=== PATIENT | male | born 1965 | race Caucasian/White ===

== ENCOUNTER 2025-01-02 18:46 | Emergency (ER) | payer OTHER, SELFPAY ==
[2025-01-02 18:56] VITALS: BP 130/74
[2025-01-02 19:28] LABS: COVID-19 Antigen Negative (Negative)
[2025-01-02] MEDS: TYLENOL 1000 MG PO (21:30)
[2025-01-02 21:47] LABS: Hematocrit 38.5 % (39.0-52.0); Hemoglobin 13.4 g/dL (13.0-18.0); Mean Corp Hgb Conc. 34.8 g/dL (33.0-37.0); Mean Corpuscular Hgb 28.4 pg (27.0-31.0); Mean Corpuscular Volume 81.6 fL (80.0-94.0); Platelet Count 224 10^3/uL (130-400); Red Blood Cell Count 4.72 10^6/uL (4.70-6.10); Red Cell Dist. Width 13.2 % (11.5-14.5); White Blood Cell Count 13.2 10^3/uL (4.8-10.8)
[2025-01-02 21:57] LABS: Monotest Negative (Negative)
[2025-01-02 22:02] LABS: Erythrocyte Sed Rate 39 mm/hour (0-20)
--- NOTE | 2025-01-02 22:03 | ED.GENMED ---
History of Present Illness
General
Chief Complaint: Fever
Source: patient
Exam Limitations: none
Time Seen by Provider: 01/02/25 20:47
Nursing documentation reviewed up to this point in time: agreed with
History of Present Illness
History of Present Illness:
The patient is a 59-year-old man who reports feeling lethargic about 5 to 6 days ago. Patient reports that he believes he developed a fever about 4 days ago. He felt initially better but today his fever spiked to 103. His doctor evaluated him
yesterday and started him on Tamiflu, even though his flu test came back negative. Patient reports that when he closes his left eye, he has pain that develops along the left side of his scalp and towards his left ear. He denies sore throat and
headache. He denies vision changes. He denies any irritation or drainage from his eyes. He denies sick contacts. He reports he vomited once last night but has not had any vomiting since then. He denies nasal congestion, cough, rash and
diarrhea.
Past History
Past History
ED Past Medical History: None
ED Past Surgical History: Other (Cyst removed from finger)
Social History
Tobacco: Other
Alcohol: Other
Drug: None
Personal:
Living: with family
Employment: Employed
Family History
Family History: Other
Review of Systems
Review of Systems
Allergies reviewed?: Yes
All Other Systems: ROS reviewed and negative except as documented in HPI and ROS
Constitutional: Reports fever, fatigue and chills
EENT: Reports other (Pain in left ear)
Respiratory: Reports no symptoms
Cardiac: Reports no symptoms
ABD/GI: Reports no symptoms
: Reports no symptoms
Musculoskeletal: Reports no symptoms
Skin: Reports no symptoms
Neurological: Reports no symptoms
Endocrine: Reports no symptoms
Hematologic/Lymphatic: Reports no symptoms
Psychiatric: Reports no symptoms
Phy Exam
Physical Exam
Physical Exam:
Physical Exam
General: no apparent distress, patient is conversational, smiling, nontoxic but appears flushed l
Neck: supple. No cervical lymphadenopathy. No meningismus, no specific mastoid bone tenderness, no global eye tenderness bilaterally. No swelling of soft tissue neck. No significant erythema of bilateral TMs. Left
tympanic membrane appears dull. no eye pain with extraocular muscle movements. Patient has no temporal scalp tenderness, when I rub the area, he reports it makes it feel better.
Heart: Tachycardic, no murmur
Lungs: no acute respiratory distress. clear bilaterally
Abdomen: Soft, nontender
Neuro: alert and oriented. no focal neurological deficits
Skin: no rash
Psychiatric: well kept. interactive and cooperative
Extremities: no edema.
Sepsis
Sepsis Screening
Sepsis Assessment: Sepsis Ruled Out
Sepsis Screen
Sepsis Screen: Sepsis Ruled Out
Date: 01/03/25
Time: 01:23
Course
Orders/Labs/Results
Orders:
Orders
01/02/25 19:04
COVID-19 Antigen Urgent
Source: Nasal Swab
Influenza A+B Rapid Molecular Urgent
LEXX Source: Nasal Swab
Specimen Description:
01/02/25 21:26
Acetaminophen [Tylenol] 1,000 mg PO NOW STA
01/02/25 21:27
CT Orbits With Iv Contrast Urgent
Comment:
Reason For Exam: fever, L temporal area pain with closing L eye
01/02/25 21:28
Complete Blood Count/With Diff Urgent
ESR [Erythrocyte Sed Rate] Urgent
Monotest Urgent
01/02/25 21:55
CRP [C-Reactive Protein] Urgent
01/02/25 22:47
Comprehensive Metabolic Panel Urgent
01/03/25 00:57
Amoxicillin 875 mg/Clav 125 mg [Augmentin 875 mg/125 mg] 1 tablet PO NOW STA
Ibuprofen [Motrin] 600 mg PO NOW STA
Abnormal Lab Results
01/02/25 01/02/25 01/02/25
21:28 21:55 22:47
WBC 13.2 H 10^3/uL
(4.8-10.8)
Hct 38.5 L %
(39.0-52.0)
Abs Immat Gran (auto) 0.1 H 10^3/uL
(0-0.05)
Absolute Neuts (auto) 11.5 H 10^3/uL
(1.4-6.5)
Absolute Lymphs (auto) 0.8 L 10^3/uL
(1.2-3.4)
Absolute Monos (auto) 0.7 H 10^3/uL
(0.1-0.6)
Neutrophils % 87.6 H %
(42.2-75.2)
Lymphocytes % 6.4 L %
(20.5-51.1)
ESR 39 H mm/hour
(0-20)
Sodium 128 L mmol/L
(135-145)
Chloride 96 L mmol/L
(98-107)
Glucose 121 H mg/dl
(70-99)
Calcium 8.0 L mg/dl
(8.4-10.2)
C-Reactive Protein > 270.00 H mg/L
(0.0-10.00)
Total Protein 5.7 L g/dl
(6.3-8.2)
Albumin 3.0 L g/dl
(3.5-5.0)
01/02/25 21:28
01/02/25 22:47
Vital Signs
Initial and Last Documented VS:
Initial Vital Signs
Temp Pulse Resp BP Pulse Ox
103.1 F H 117 18 130/74 99
01/02/25 18:56 01/02/25 18:56 01/02/25 18:56 01/02/25 18:56 01/02/25 18:56
Last Documented Vital Signs
Temp Pulse Resp BP Pulse Ox
100.3 F 86 18 130/88 100
01/03/25 00:00 01/03/25 01:16 01/03/25 01:16 01/03/25 01:16 01/03/25 01:16
MDM/Problems Addressed
Differential Diagnosis Includes:
Influenza, COVID, pneumonia, otitis media, post orbital cellulitis
MDM/Problems Addressed:
Patient presents with acute fever and acute pain around left ear
Acute Exacerbation and/or Progression of Chronic Illness:
Patient is acutely hypertensive, likely due to fever and not feeling well
Acute Exacerbation and/or Progression of Chronic Illness: HTN
*Radiology
Radiology exam reviewed: radiology read reviewed
*Pulse Oximetry
Patient hypoxic: no
*EKG
Interpreted by ED Provider?: NA
*Pricing Coordinator Interpretation
Rate: Pricing Coordinator- N/A
*Critical Care Note
Total Time (30-74mins, 75-104mins- exclusive of procedures): Not Applicable
Data Reviewed
Source: patient and spouse
Patient Management
Social determinants of health affecting care: Living situation and Strong social support
Escalation/DeEscalation of care consider admission/obs:
Patient shows no sign of meningitis. He appears well nontoxic. His lungs are clear. I do not hear any cardiac murmurs to suggest endocarditis. His CT facial bones shows no sign of post orbital cellulitis or mastoiditis. Patient has no specific
mastoid tenderness or swelling. Patient's left tympanic membrane looks slightly dull. Given patient's 103 fever and left ear pain, decision made to treat him for a possible left otitis media. Patient also may have an acute sinusitis.
ED Attending Note
-
Portions of this chart may have been created with voice recognition software.� Occasional wrong word or��sound alike� substitutions may have occurred due to the inherent limitations of voice recognition software.
Discharge Plan
Departure
Patient Disposition: Home (Routine Discharge)
Date of Disposition: 01/03/25
Time of Disposition: 00:57
Patient with high blood pressure during this ER visit?: Yes
Condition: Good
Covid-19: Negative COVID-19
Discharge Problem:
Fever, Acute left otitis media
Instructions: Fever, Adult (DC)
Prescriptions:
New
amoxicillin-pot clavulanate 875-125 mg tablet
1 tab PO BID Qty: 13 0RF
Referrals:
Issa Mai MD [Family Provider] -
Activity Restrictions/Additional Instructions:
You may have an otitis media of the left ear, which is a middle ear infection. Take 1000 mg of Tylenol every 4-6 hours for fever. If the Tylenol is not substantially lowering the fever, you can also take Advil/Motrin 600 mg every 6-8 hours for
fever. Drink lots of fluids to keep yourself hydrated.
Interventions
Interventions:
*Risk Screen - Suicide Last Done: 01/02/25 22:00
*General Assessment Last Done: 01/02/25 18:56
*Neglect/Abuse Screening Last Done: 01/02/25 18:56
*ED- Fall Risk Assessment Last Done: 01/03/25 01:02
*ED COVID-19 Vaccine History Last Done: 01/02/25 18:56
*Nursing Disposition Last Done: 01/03/25 01:19
ED- Neurological Assessment Last Done: 01/03/25 01:02
ED-Skin Assessment Last Done: 01/03/25 01:02
Discharge Date and Time
Print Language: LUXEMBOURGISH
[2025-01-02 22:10] LABS: % Basophils 0.2 % (0-2); % Immature Granulocytes 0.5 % (0-0.5); % Lymphocytes 6.4 % (20.5-51.1); % Monocytes 5.3 % (1.7-9.3); % Neutrophils 87.6 % (42.2-75.2); Absolute Immature Granulocytes 0.1 10^3/uL (0-0.05); Absolute Lymphocytes 0.8 10^3/uL (1.2-3.4); Absolute Monocytes 0.7 10^3/uL (0.1-0.6); Absolute Neutrophils 11.5 10^3/uL (1.4-6.5); Nucleated Red Blood Cells % 0 % (-)
[2025-01-02 22:42] LABS: C-Reactive Protein > 270.00 mg/L (0.0-10.00)
[2025-01-02 23:11] LABS: ALT (SGPT) 42 U/L (0-50); AST (SGOT) 48 U/L (17-59); Alkaline Phosphatase 96 U/L (38-126); Blood Urea Nitrogen 13 mg/dl (9-20); Carbon Dioxide 27 mmol/L (22-30); Chloride 96 mmol/L (98-107); Glucose 121 mg/dl (70-99); Potassium 3.8 mmol/L (3.5-5.1); Sodium 128 mmol/L (135-145); Total Bilirubin 0.7 mg/dl (0.2-1.3); Total Protein 5.7 g/dl (6.3-8.2); eGFR > 60.00
[2025-01-03] MEDS: AUGMENTIN 875 MG/125 MG 1 TABLET PO (01:09)
[2025-01-03] MEDS: MOTRIN 600 MG PO (01:09)
[2025-01-03 01:16] VITALS: BP 130/88
== END 2025-01-03 01:20 | disposition home or self-care (01) ==
LOC: EMR 18:46
PROVIDERS: Emergency Medicine; EMERGENCY PHYSICIAN Emergency Medicine; FAMILY PHYSICIAN Family Medicine
DX: H66.92 Otitis media, unspecified, left ear (principal); I10 Essential (primary) hypertension; Z11.52 Encounter for screening for COVID-19
CPT/HCPCS: 99284; 70481; 80053; 85025; 85652; 86140; 86308; 87502; 87811; Q9967

== ENCOUNTER 2025-01-06 21:36 | Inpatient (IN) | payer OTHER, SELFPAY ==
[2025-01-06 18:50] VITALS: BP 136/79
--- NOTE | 2025-01-06 19:11 | ED.GENMED ---
History of Present Illness
General
Chief Complaint: Fever
Time Seen by Provider: 01/06/25 19:11
History of Present Illness
History of Present Illness:
TIME OF INITIAL ENCOUNTER: 7:15 PM
HPI: The patient presents with ongoing fevers for the past 8 days. He has been temperatures to around 103 �F each morning. He was seen here in the Emergency Department 4 days ago and was placed on Augmentin. He had been having intermittent waves
of pain behind his left eye. He has no neck pain. He developed a rash which is not pruritic the day after he started antibiotic. He does not think that he is immunized against measles. He has an increased cough now.
EXAM:
GENERAL: Well appearing in no distress, he is febrile,
HEENT: Moist oral mucosa, no meningeal signs, excellent chin to chest
CARDIOVASCULAR: No murmurs, tachycardic heart rate, regular rhythm, No chest wall tenderness
PULMONARY: No respiratory distress, there are rales at the left base
ABDOMEN: Soft with no peritoneal signs, no tenderness
NEUROLOGIC: Excellent strength all extremities, no coordination deficits
PSYCHIATRIC: Appropriate mental status, normal insight and judgement
EXTREMITIES: Nontender, no edema, moves all extremities equally
SKIN: There is scattered macules on the torso not suggestive of measles
NUMBER AND COMPLEXITY OF PROBLEMS ADDRESSED AT THE ENCOUNTER
� Chronic conditions affecting care: Denies any significant past medical history
� Acute Exacerbation and/or Progression of Chronic Illness: This is an acute problem
� Differential Diagnosis includes: Viral syndrome, tickborne illness, bacteremia, sepsis, measles, pneumonia
AMOUNT AND/OR COMPLEXITY OF DATA TO BE REVIEWED AND ANALYZED
� I performed an independent evaluation of and my interpretation is:
EKG:
CT:
X-rays: Chest x-ray by my read shows bilateral (right infiltrates
Laboratory Studies: White count 9.7, 1.8% immature granulocytes, mild lymphocytopenia, sed rate 63, CRP greater than 270, transaminases are now elevated in the low 100s and alk phos is 424, Clark negative, tickborne illnesses
pending, COVID-negative
Other:
� Review of other/old records: I reviewed records from 4 days ago. At that time, white count was 13.2, C-reactive protein was markedly elevated at greater than 270. CT of the orbits at that time showed some mild patchy mucosal
thickening at the left maxillary sinus and ethmoid sinuses. Flu test was negative.
� Clinical information was obtained by an independent historian: I spoke to and daughter at bedside
� Prescriptions/Medications Considered but not given:
� Further testing considered but not performed:
RISK OF COMPLICATIONS AND/OR MORBIDITY OR MORTALITY OF PATIENT MANAGEMENT
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
� Discussion with other providers: Hospitalist for admission
� Escalation of care including admission/observation vs risk of discharge considered: The patient has had 8 days of fever now with bilateral pneumonia despite being on Augmentin. Rash started after Augmentin was started. Clark
negative. Very low suspicion for measles based on the appearance however the patient is not vaccinated. Rubeola IgM pending. Patient works outside and they live in [place] [facility], tickborne illness studies pending as well. He is hypoxic with room air
sats of 90 to 91%. Placed on 2 L nasal cannula. He has marked rales on exam. Will admit to the hospital for IV antibiotic
ANY OTHER UPDATES:
Past History
Past History
ED Past Medical History: None
ED Past Surgical History: Other (Cyst removed from finger)
Social History
Tobacco: Other
Alcohol: Other
Drug: None
Personal:
Living: with family
Employment: Employed
Family History
Family History: Other
Phy Exam
Physical Exam
Physical Exam:
See HPI
Sepsis
Sepsis Screening
Sepsis Assessment: Sepsis
Sepsis Screen
Sepsis Screen: Sepsis
Date: 01/06/25
Time: 22:35
Course
Orders/Labs/Results
Orders:
Orders
01/06/25 19:25
CR Chest - 2 Views Urgent
Comment:
Reason For Exam: cough, rales L base
01/06/25 19:29
Acetaminophen [Tylenol] 1,000 mg PO NOW STA
01/06/25 19:48
Anaplasma phagocytophila IgG/M [S] Urgent
Babesia microti Abs, IgG/IgM [S] Urgent
CRP [C-Reactive Protein] Urgent
Complete Blood Count/With Diff Urgent
Comprehensive Metabolic Panel Urgent
ESR [Erythrocyte Sed Rate] Urgent
Lactic Acid Q4H
Comment: CANCEL 2nd LACTIC ACID IF 1st LACTIC ACID IS LESS THAN 2
Lyme Progressive Urgent
Monotest Urgent
Rubeola Virus IgM (Measles) [S] Urgent
Blood Culture Q30M
LEXX Source: Blood/Venous
Specimen Description:
01/06/25 19:49
Blood Culture Q30M
LEXX Source: Blood/Venous
Specimen Description:
01/06/25 20:21
0.9% Sodium Chloride 1000 ml [Nss] 1,000 ml IV BOLUS
Azithromycin 500 mg/250 ml [Zithromax Infusion] 500 mg in 250 ml IV NOW
CefTRIAXone [Rocephin] 1,000 mg IV NOW STA
01/06/25 20:24
Sterile Water [Sterile Water For Injection] 10 ml .ROUTE .STK-MED ONE
01/06/25 20:42
US Abdomen Complete/Upper Urgent
Comment:
Reason For Exam: fever abnormal LFTs
01/06/25 21:01
Admit/Transfer Patient As Directed
Co-Sign Provider:
Level of Care: Inpatient admission
Assign to:: Telemetry
Physician / Group: shin munson
Diagnosis: bilat pna, rash conc measles, transminitis
Reason for Telemetry: Arrhythmia
Date to Stop Telemetry: 01/09/25
Time to Stop Telemetry: 11:00
Reason for Hospitalization: bilat pna, rash conc measles, transminitis
Expected length of stay greater than two midnights?: Yes
ELOS- Estimated Length of Stay in days: 5
I certify the patient meets the requirements for IP care: Yes
Code Status As Directed
Resuscitation Status: Full Code
01/06/25 21:02
Add On - Microbiology Urgent
Tests Added?: respiratory viral panel Per Dr GUILLEN @[id number]
01/06/25 21:07
PRN Pain Medication Management As Directed
May give lesser potent ordered pain med per pt: Yes
preference::
Protocol:: Medication orders for pain may be administered in a
manner that supports deferring to patient preference
when the pt is:
- Requesting an ordered lesser potent pain medication.
Least to most potent pain medications are defined
as: acetaminophen < NSAID < tramadol < opioids
(morphine, oxycodone, hydromorphone).
- Requesting a lesser dose of the same medication IF
ORDERED.
- Requesting a less intrusive route of administration
if both routes are prescribed by the provider (PO <
IV).
01/06/25 21:09
CT Chest With Iv Contrast Urgent
Comment:
Reason For Exam: bilat pna
01/06/25 22:02
COVID-19 Antigen Urgent
Source: Nasal Swab
Influenza A+B Rapid Molecular Urgent
LEXX Source: Nasal Swab
Specimen Description:
01/09/25 11:00
DC Protocol for Telemetry ONCE
Abnormal Lab Results
01/06/25
19:48
RBC 4.35 L 10^6/uL
(4.70-6.10)
Hgb 12.4 L g/dL
(13.0-18.0)
Hct 35.8 L %
(39.0-52.0)
RDW 14.7 H %
(11.5-14.5)
Abs Immat Gran (auto) 0.2 H 10^3/uL
(0-0.05)
Absolute Neuts (auto) 7.5 H 10^3/uL
(1.4-6.5)
Absolute Lymphs (auto) 1.0 L 10^3/uL
(1.2-3.4)
Absolute Monos (auto) 0.7 H 10^3/uL
(0.1-0.6)
Immature Gran % 1.8 H %
(0-0.5)
Neutrophils % 77.8 H %
(42.2-75.2)
Lymphocytes % 10.4 L %
(20.5-51.1)
ESR 63 H mm/hour
(0-20)
Sodium 132 L mmol/L
(135-145)
Chloride 95 L mmol/L
(98-107)
Glucose 114 H mg/dl
(70-99)
Calcium 7.9 L mg/dl
(8.4-10.2)
AST 270 H U/L
(17-59)
ALT 148 H U/L
(0-50)
Alkaline Phosphatase 424 H U/L
(38-126)
C-Reactive Protein > 270.00 H mg/L
(0.0-10.00)
Total Protein 5.7 L g/dl
(6.3-8.2)
Albumin 2.8 L g/dl
(3.5-5.0)
01/06/25 19:48
01/06/25 19:48
Vital Signs
Initial and Last Documented VS:
Initial Vital Signs
Temp Pulse Resp BP Pulse Ox
38.7 C H 114 19 136/79 90
01/06/25 18:50 01/06/25 18:50 01/06/25 18:50 01/06/25 18:50 01/06/25 18:50
Last Documented Vital Signs
Temp Pulse Resp BP Pulse Ox
37.2 C 100 16 130/77 95
01/06/25 22:04 01/06/25 21:45 01/06/25 21:45 01/06/25 19:38 01/06/25 21:45
*Critical Care Note
Total Time (30-74mins, 75-104mins- exclusive of procedures): Not Applicable
ED Attending Note
-
Portions of this chart may have been created with voice recognition software.� Occasional wrong word or��sound alike� substitutions may have occurred due to the inherent limitations of voice recognition software.
Discharge Plan
Departure
Patient Disposition: Admit
Date of Disposition: 01/06/25
Time of Disposition: 20:28
Presentation/result/management discussed w/ accepting MD/DO: Hospitalist
Discharge Problem:
Sepsis due to pneumonia
Interventions
Interventions:
*Risk Screen - Suicide Last Done: 01/06/25 19:38
*General Assessment Last Done: 01/06/25 19:38
*Neglect/Abuse Screening Last Done: 01/06/25 19:38
*ED- Fall Risk Assessment Last Done: 01/06/25 19:38
*ED COVID-19 Vaccine History Last Done: 01/06/25 19:38
*Nursing Disposition Last Done: 01/06/25 22:34
ED- Neurological Assessment Last Done: 01/06/25 19:55
ED-Skin Assessment Last Done: 01/06/25 19:55
[2025-01-06 19:38] VITALS: BP 130/77; BMI 24.1
[2025-01-06 20:01] LABS: % Basophils 0.5 % (0-2); % Eosinophils 2.1 % (0-6); % Immature Granulocytes 1.8 % (0-0.5); % Lymphocytes 10.4 % (20.5-51.1); % Monocytes 7.4 % (1.7-9.3); % Neutrophils 77.8 % (42.2-75.2); Absolute Basophils 0.1 10^3/uL (0-0.2); Absolute Eosinophils 0.2 10^3/uL (0-0.7); Absolute Immature Granulocytes 0.2 10^3/uL (0-0.05); Absolute Monocytes 0.7 10^3/uL (0.1-0.6); Absolute Neutrophils 7.5 10^3/uL (1.4-6.5); Hematocrit 35.8 % (39.0-52.0); Hemoglobin 12.4 g/dL (13.0-18.0); Mean Corp Hgb Conc. 34.6 g/dL (33.0-37.0); Mean Corpuscular Hgb 28.5 pg (27.0-31.0); Mean Corpuscular Volume 82.3 fL (80.0-94.0); Mean Platelet Volume 9.2 fL (7.4-10.4); Nucleated Red Blood Cells % 0 % (-); Platelet Count 334 10^3/uL (130-400); Red Blood Cell Count 4.35 10^6/uL (4.70-6.10); Red Cell Dist. Width 14.7 % (11.5-14.5); White Blood Cell Count 9.7 10^3/uL (4.8-10.8)
[2025-01-06] MEDS: TYLENOL 1000 MG PO (20:06)
[2025-01-06 20:13] LABS: Erythrocyte Sed Rate 63 mm/hour (0-20); Lactic Acid 1.5 mmol/L (0.7-2.0)
[2025-01-06 20:24] LABS: Monotest Negative (Negative)
[2025-01-06 20:26] LABS: Albumin 2.8 g/dl (3.5-5.0); Alkaline Phosphatase 424 U/L (38-126); Blood Urea Nitrogen 19 mg/dl (9-20); Calcium 7.9 mg/dl (8.4-10.2); Carbon Dioxide 30 mmol/L (22-30); Chloride 95 mmol/L (98-107); Glucose 114 mg/dl (70-99); Potassium 3.9 mmol/L (3.5-5.1); Sodium 132 mmol/L (135-145); Total Bilirubin 0.6 mg/dl (0.2-1.3); Total Protein 5.7 g/dl (6.3-8.2)
[2025-01-06] MEDS: ZITHROMAX INFUSION 250 IV (20:26)
[2025-01-06] MEDS: ROCEPHIN 1000 MG IV (20:26)
[2025-01-06] MEDS: NSS 1000 IV (20:26)
[2025-01-06 20:33] LABS: C-Reactive Protein > 270.00 mg/L (0.0-10.00)
[2025-01-06 20:36] LABS: ALT (SGPT) 148 U/L (0-50); AST (SGOT) 270 U/L (17-59); Estimated Creatinine Clearance 108 ml/min; eGFR > 60.00
--- NOTE | 2025-01-06 20:47 | HPS.HSE ---
Family Physician
-
Family Physician: Issa Mai
Chief Complaint
History of Present Illness
59-year-old male complaining of ongoing fevers for the past 8 days with temperatures in the morning to 103F. He was seen in the emergency department 4 days ago placed on oral Augmentin for CT orbits showing sinus disease
Medical History
Allergies / Home Medications
Allergies reflects when Allergies were last updated in [facility].
Home Medications with original date entered in [facility]
Physical Exam
Vital Signs
Vital Signs
Temp Pulse Resp BP Pulse Ox
101.6 F H 105 25 130/77 90
01/06/25 18:50 01/06/25 20:07 01/06/25 20:07 01/06/25 19:38 01/06/25 18:50
Laboratory Results
-
01/06/25 19:48
01/06/25 19:48
Laboratory Results
Lactic Acid 1.5 mmol/L (0.7-2.0) 01/06/25 19:48
Total Bilirubin 0.6 mg/dl (0.2-1.3) 01/06/25 19:48
AST 270 U/L (17-59) H 01/06/25 19:48
ALT 148 U/L (0-50) H 01/06/25 19:48
Alkaline Phosphatase 424 U/L (38-126) H 01/06/25 19:48
Impression/Plan
-
IMPRESSION:
PLAN:
--- NOTE | 2025-01-06 22:10 | HPS.HSE ---
Family Physician
-
Family Physician: Issa Mai
Chief Complaint
-
fever, rash
History of Present Illness
59 y/o M, no significant PMH, presents to ER for evaluation of ongoing fevers. Patient reports feeling ill 9 days ago on Saturday - initially just felt sick/lethargic nonspecifically. Two days later he developed chills and fever of 100.7 along with
dry cough; by he was having further chills, higher temps and 'shakes'. on Saturday, evaluated by PCP - COVID and flu negative, but empirically given Tamiflu. on Saturday, presented to ER for 103 fever, and poor appetite. CT imaging sinus
thickening. He was prescribed Augmentin for possible sinus infection and possible inner ear infection. During this time he also suffered L eye pain and eye redness bilaterally. Over the next two days, he felt ok but today developed fever of 103,
hypoxia to 90s and tachypnea of >30 breaths as noted by his daughter, a physical therapist. He also developed a progressive rash from his face down to his trunk/abdomen and back, nonpruritic in nature. in ER bubbaight, found to have multifocal
pneumonia. Given IVF and broad spectrum antibiotics. Measle IgM sent due to patient being unvaccinated; confirmed by his sister and at bedside.
Medical History
Past Medical History
Past Medical History: Reports None
Past Surgical History: Reports None
Social History
Tobacco: Non-smoker
Alcohol: None
Personal:
Living: With Family
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
Family History
Family History: Not pertinent and Other
Allergies / Home Medications
Allergies reflects when Allergies were last updated in [facility].
Home Medications with original date entered in [facility]
Allergy/Medication List:
Allergies
Allergy/AdvReac Type Severity Reaction Status Date / Time
No Known Allergies Allergy Verified 01/06/25 18:50
Home Medications
amoxicillin 875 mg-potassium clavulanate 125 mg tablet 1 tab PO BID #13 tabs 01/03/25
cetirizine 10 mg tablet 10 mg PO DAILYPRN PRN allergies 01/06/25
ibuprofen 200 mg tablet (Advil) 200 mg PO Q6HPRN PRN mild pain/fever 01/06/25
Review of Systems
-
A 12 point ROS was completed and negative except as noted: Yes
Physical Exam
Vital Signs
Vital Signs
Temp Pulse Resp BP Pulse Ox
98.9 F 100 16 130/77 95
01/06/25 22:04 01/06/25 21:45 01/06/25 21:45 01/06/25 19:38 01/06/25 21:45
Physical Exam
General: No Apparent Distress
HEENT: NormoCephalic and Anicteric
Respiratory: Rales (prominent L basilar rales, crackles)
Cardiac: S1/S2 and Regular Rhythm
GI: Soft and Non Tender
Skin: Other (raised lesions across hairline, down to trunk and back, distally spreading. nonpruritic. )
Neuro: AO x 3
Hematologic/Lymphatic: No Lymphadenopathy
Psych: Calm
Laboratory Results
-
01/06/25 19:48
01/06/25 19:48
Laboratory Results
Lactic Acid Cancelled 01/06/25 23:30
Total Bilirubin 0.6 mg/dl (0.2-1.3) 01/06/25 19:48
AST 270 U/L (17-59) H 01/06/25 19:48
ALT 148 U/L (0-50) H 01/06/25 19:48
Alkaline Phosphatase 424 U/L (38-126) H 01/06/25 19:48
Data Reviewed
-
Lab Data: Labs Reviewed by me
Impression/Plan
-
Assessment:
Acute distally spreading, macular rash
- appears a viral exanthem
- nonpruritic
- monitor spread/progression
- with other generalized symptoms such as malaise, fevers - will check viral respiratory panel, COVID and Flu
- confirmed never vaccinate against Measles, Mumps, Rubella - will check IgMs
- precautions ordered.
- tick born illness panel sent
- supportive care and observation for now
- ID consult for additional recs
Acute hypoxic respiratory insufficiency on 2L NC
multifocal pneumonia
- unclear etiology
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
- ? hypersensitivity reaction. check IgE
- post-viral pneumonia also possible
- check Speech eval to assess for aspiration
- empiric Vanco/Cefepime
- CT Chest
- Pulmonary consult for additional recs
Acute transaminitis
- US: The gallbladder appears contracted without sonographic evidence of cholelithiasis. There is no biliary duct dilation. Increased echogenicity of the liver suggestive of mild steatosis.
- trend LFTs
- check hepatitis panel including EBV
- no pain; ok for diet
DVT ppx: Lovenox
Code: Full
[2025-01-06 22:28] LABS: COVID-19 Antigen Negative (Negative)
[2025-01-06 22:45] VITALS: BMI 24.1
[2025-01-06 22:46] VITALS: BP 135/75
--- NOTE | 2025-01-06 23:00 | PHA.VAN.IN ---
Assessment
- Assessment
Renal Function: Appears similar to baseline
Concomitant Antimicrobials: CEFEPIME
- Previous Dosing Experience
Previous Regimen: NONE
AUC Dosing Plan
- Dosing Variables
Dosing Weight (kg): 80.4
Dosing CrCl (ml/min): 100
Vd coefficient (L/kg): 0.7
- Empiric Dosing
Initial / Loading Dose: 2GM
Maintenance Regimen: 1250MG IV Q12H
Estimated AUC (mcg*h/mL): 542
Estimated Peak (mcg*h/mL): 34.2
Estimated Trough (mcg/ml): 13.7
Estimated Half Life (H): 7.9
Pharmacokinetics Vancomycin I
- -
Patient Age: 59
Patient Sex: Male
Vancomycin Day #: 1
Indication: Pulmonary/Respiratory
Requesting Provider: LARRY
Height / Weight:
Height 6 ft
Actual Weight 80.377 kg
Pertinent Past Medical History: RECENT ER VISIT FOR SIMILAR SYMPTOMS
- Vital Signs / Lab Results
Temp Pulse Resp BP Pulse Ox
98.6 F 93 20 135/75 96
01/06/25 22:46 01/06/25 22:46 01/06/25 22:46 01/06/25 22:46 01/06/25 22:46
Lab Results - Hematology
01/06/25
19:48
WBC 9.7
Lab Results - Chemistry
01/06/25
19:48
BUN 19
Creatinine 0.8
Estimated Creat Clear 108
Albumin 2.8 L
01/06/25 01/06/25
19:48 23:30
Lactic Acid 1.5 Cancelled
Microbiology Results
01/06/25 22:02 Influenza Types A & B (SD) - Final
Nasal Swab Negative for Influenza A & B, NAAT
Negative results must be combined with clinical observations
and patient history.
Nucleic Acid Amplification test (NAAT)performed on the
[employer] platform.
[2025-01-06] MEDS: VANCOCIN 540 MG IV (23:49)
--- NOTE | 2025-01-07 01:49 | PTCARENOTE ---
01/06: PT admitted via stretcher. pt ambulatory on 2l nc masked. Pt AAOx3. Telemetry pack applied, vss. pt oriented to room, callbell within reach. pt's family educated on hospital policy for rule out measles.
[2025-01-07] MEDS: STERILE WATER FOR INJECTION 10 ML IV ×2 (02:34→10:26)
[2025-01-07] MEDS: MAXIPIME 2000 MG IV ×2 (02:34→10:26)
[2025-01-07 03:10] VITALS: BP 115/70
[2025-01-07 06:00] VITALS: BMI 24.2
[2025-01-07] MEDS: VANCOCIN 275 MG IV (06:23)
[2025-01-07 06:29] LABS: Hematocrit 36.3 % (39.0-52.0); Hemoglobin 12.2 g/dL (13.0-18.0); Mean Corp Hgb Conc. 33.6 g/dL (33.0-37.0); Mean Corpuscular Hgb 27.6 pg (27.0-31.0); Mean Corpuscular Volume 82.1 fL (80.0-94.0); Mean Platelet Volume 9.4 fL (7.4-10.4); Platelet Count 327 10^3/uL (130-400); Red Blood Cell Count 4.42 10^6/uL (4.70-6.10); Red Cell Dist. Width 14.6 % (11.5-14.5); White Blood Cell Count 9.4 10^3/uL (4.8-10.8)
[2025-01-07 06:54] LABS: ALT (SGPT) 145 U/L (0-50); AST (SGOT) 198 U/L (17-59); Albumin 2.4 g/dl (3.5-5.0); Alkaline Phosphatase 379 U/L (38-126); Blood Urea Nitrogen 15 mg/dl (9-20); Calcium 7.7 mg/dl (8.4-10.2); Carbon Dioxide 27 mmol/L (22-30); Chloride 103 mmol/L (98-107); Estimated Creatinine Clearance 123 ml/min; Glucose 105 mg/dl (70-99); Potassium 4.2 mmol/L (3.5-5.1); Sodium 137 mmol/L (135-145); Total Bilirubin 0.5 mg/dl (0.2-1.3); Total Protein 5.1 g/dl (6.3-8.2); eGFR > 60.00
[2025-01-07 07:15] LABS: C-Reactive Protein > 270.00 mg/L (0.0-10.00)
--- NOTE | 2025-01-07 07:24 | CON.PUL ---
Consultation
Consultation Request
Date/Time Consultation Requested: 01/07/2025
Date/Time Consultation Performed: 01/07/2025
Requesting Provider: Pankaj Flores
Performing Provider: Malena Rincon
Reason for Consultation: Pneumonia
Medical History
-
Chief Complaint: Cough
History of Present Illness:
59 y/o M, no significant PMH, presented to hospital with fever, rash and cough. Patient's illness started about 10 days ago when he had generalized bodyaches and fever. He was empirically treated with Tamiflu as outpatient. Subsequently he
presented to [place] emergency room because of left-sided retro-orbital pain. He had a CT scan in the hospital which was essentially negative. He was suspected to have otitis media and was started on Augmentin. 3 days into Augmentin therapy,
patient broke out into a urticarial rash in addition to having cough and some fever. He was brought back to the emergency room where he was noted to have large left-sided pneumonia. There was concern for measles/viral exanthem and he was admitted
to the hospital. Pulmonary consultation was requested for further input.
Past Medical History: Reports None
Past Surgical History: Reports None
Social History
Tobacco: Non-smoker
Alcohol: None
Personal:
Living: With Family
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 No reported exposure to Asbestos. Reports exposure to Silica/cement etc. Wears mask etc.
Family History
Family History: Not pertinent and Other
Allergies / Home Medications
Allergies / Home Medications
Allergies
Allergy/AdvReac Type Severity Reaction Status Date / Time
No Known Allergies Allergy Verified 01/06/25 18:50
Home Medications
�Medication �Instructions �Recorded �Confirmed �Last Taken �Type
amoxicillin 875 mg-potassium 1 tab PO BID #13 tabs 01/03/25 01/06/25 01/06/25 Rx
clavulanate 125 mg tablet
cetirizine 10 mg tablet 10 mg PO DAILYPRN PRN allergies 0401/06/25 01/06/25 History
ibuprofen 200 mg tablet (Advil) 200 mg PO Q6HPRN PRN mild 01/06/25 01/06/25 01/06/25 History
pain/fever
Review of Systems
-
Hematologic/Lymphatic: Other (All 14 systems reviewed and negative except as stated above in the history of present illness.)
Vitals / Labs / Diagnostic Testing
Vital Signs
Temp Pulse Resp BP Pulse Ox
98.6 F 86 20 115/70 97
01/07/25 03:10 01/07/25 03:10 01/07/25 03:10 01/07/25 03:10 01/07/25 05:48
Lab Data
01/07/25 05:54
01/07/25 05:54
Microbiology
01/06/25 22:02 Nasal Swab Influenza Types A & B (SD) - Final
Negative for Influenza A & B, NAAT
Negative results must be combined with clinical observations
and patient history.
Nucleic Acid Amplification test (NAAT)performed on the
[employer] platform.
Diagnostic Testing:
Physical Exam
-
HEENT: Normocephalic
Cardiovascular: S1/S2
Respiratory: Clear and Rhonchi (in b/l lower lobes, more on left side )
GI: Soft and Non Distended
Neurology: Awake and Alert
Skin: Warm and Other (Raised papular lesions, appear to be urticarial )
General: Comfortable
Assessment
-
#1. Multifocal pneumonia, primarily LLL, also RLL infiltrates.
-Continue Vancomycin and Cefepime as ordered
-Add Azithromycin 500 mg daily PO for Atypical coverage (particularly Mycoplasma with abnormal LFTs)
-Check Sputum cultures, MRSA screen, Legionella and Pneumococcal Ag. f/u blood cultures.
-Influenza and COVID-19 negative
-If any clinical worsening, will consider Bronchoscopy and BAL with biopsy
-Considering dense infiltrates, patient will need f/u imaging in 6-8 weeks time
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 Wears mask at work, imaging features not typical of occupation exposure
#2. Rash. Raised papules, appear to be Urticaria. ?Drug reaction to Augmentin that patient had been on.
-Off Augmentin now
-Benadryl PO times 1
-Viral exanthem, Mycoplasma also in differential diagnosis. Await ID input
#3. Mildly elevated LFTs
-Could be related to Augmentin as well
-Monitor for now
Pulmonary team will follow
Total time spent on this consultation/encounter _65___ minutes which includes review of history, physical exam, medications, laboratory data, personal review of imaging, extensive review of outpatient records, discussion with care team and
respiratory therapy.
Data:
01/2025: 1. There is multifocal pneumonia most pronounced in the left lower lobe which is near completely opacified. Recommend follow-up to exclude underlying mass.
2. There is bilateral hilar lymphadenopathy measuring up to 1.1 cm, likely reactive.
3. Calcification within the lateral right lower lobe as well as calcified right hilar lymph nodes which are likely sequelae of prior granulomatous infection.
4. Bilateral apical calcified pleural plaques which are likely sequelae of prior asbestos exposure.
[2025-01-07 07:45] VITALS: BP 129/77
--- NOTE | 2025-01-07 08:14 | PHA.VAN.FU ---
Vancomycin Assessment / Plan
- Assessment
Renal Function: Stable (SCr 0.7)
WBC's are: WNL (9.4)
In the past 24 hrs, patient has been: Febrile (101.4)
Concomitant Antimicrobials: Cefepime
- Dosing Plan
Continue: Vanco 1250mg Q12H
- Monitoring Plan
No level(s) ordered at this time: Consider in the next few days
- Follow Up
Pharmacy will continue to follow.
Vancomycin Follow UP
- -
Patient Age: 59
Patient Sex: Male
Vancomycin Day #: 2
Indication: Pulmonary/Respiratory
Requesting Provider: LARRY
Height / Weight:
Height 6 ft
Actual Weight 80.785 kg
Pertinent Past Medical History: RECENT ER VISIT FOR SIMILAR SYMPTOMS
- Vital Signs / Lab Results
Temp Pulse Resp BP Pulse Ox
98.6 F 86 20 115/70 97
01/07/25 03:10 01/07/25 03:10 01/07/25 03:10 01/07/25 03:10 01/07/25 05:48
Lab Results - Hematology
01/06/25 01/07/25
19:48 05:54
WBC 9.7 9.4
Lab Results - Chemistry
01/06/25 01/07/25
19:48 05:54
BUN 19 15
Creatinine 0.8 0.7
Estimated Creat Clear 108 123
Albumin 2.8 L 2.4 L
01/06/25 01/06/25
19:48 23:30
Lactic Acid 1.5 Cancelled
Microbiology Results
01/06/25 22:02 Influenza Types A & B (SD) - Final
Nasal Swab Negative for Influenza A & B, NAAT
Negative results must be combined with clinical observations
and patient history.
Nucleic Acid Amplification test (NAAT)performed on the
[employer] platform.
[2025-01-07 08:16] LABS: Erythrocyte Sed Rate 71 mm/hour (0-20)
[2025-01-07 08:45] LABS: Absolute Neutrophils -Man Diff 7.7 10^3/uL (1.4-6.5); Atypical Lymphocytes 3 %; Band Neutrophils 10 % (0-3); Eosinophils 1 % (0-6); Lymphocytes 7 % (20-51); Metamyelocytes 3 % (-); Monocytes 4 % (2-9); Normal RBC Morphology Yes; Platelets Checked Yes; Segmented Neutrophils 72 % (42-75)
[2025-01-07 08:46] LABS: Total Cells Counted 100
--- NOTE | 2025-01-07 09:49 | CON.ID ---
Addendum entered and electronically signed by Memo Cespedes DO 01/07/25 11:34:
I personally performed a history and physical exam of the patient and discussed management with the resident. I reviewed the resident's note and agree with the documented findings and plan of care HPI/CC.
Rash not consistent with measles. Discontinue further isolation. Discussed with Infection Prevention.
Continue with antibiotic therapy for pneumonia. Change to oral Levaquin.
Follow rash for improvement.
Check Legionella and pneumococcal urinary antigens. Mycoplasma antibody sent.
Follow LFTs
Original Note:
Consultation
-
Date/Time Consultation Requested: 01/07/25
Date/Time Consultation Performed: 01/07/25
Requesting Provider: Dr. Memo Cespeeds
Performing Provider: Dr Jv Kay
Reason for Consultation: Fever with rash
Chief Complaint / Past History
History of Present Illness
59-year-old male with no significant past history is being evaluated for fever with rash. History is being obtained from the chart and patient interview. 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
Patient reports his symptoms started on Saturday with weakness and feeling lethargic. He developed fever and chills two days later on . He took some Tylenol which helped. His symptoms started to worsen and he decided to go to his PCP
at [facility]. He was prescribed Tamiflu for flu, though the test was negative. He reports that his symptoms worsened the next day with continuous fevers and chills. He denies cough, runny nose, SOB. He then decided to go to ER on
01/02/25, where CT of head/orbit showed mucosal thickening of ethmoid sinuses. He was prescribed Augmentin for acute sinusitis.
He reports that with Augmentin his fever improved and he felt energetic. He also took Advil. He reports of rash on the third day of taking the antibiotic, rash started on his trunk and spread to his torso. The next day he was hypoxic, fever of 103
and tachypnea which was noted by his daughter and was brought to the ED.
Work up in ED showed bilateral lower lobe infiltrate on the chest x ray. Patient was started on Azithromycin, Cefepime and Vancomycin. Labs showed normal WBC with a left shift, transaminitis, elevated alk phosphatase, elevated ESR and CRP.
He denies taking any childhood vaccines as his mother did not believe in vaccinations.
Past History
Past Medical History: None
Past Surgical History: None
Allergy History:
No Known Allergies Allergy (Verified 01/06/25 18:50)
Medications Reviewed: Yes
Current Antibiotics:
Cefepime
Vancomycin
Azithromycin
Social History
Tobacco: Non-Smoker
Alcohol: None
Personal:
Living: With Family
Employment: Employed
Family History
Family History: Not Pertinent
Review of Systems
Review of Systems
General: Fever and Chills
Skin / Hair / Nails: Rash
Vital Signs
Temp Pulse Resp BP Pulse Ox
99.3 F 102 16 129/77 91
01/07/25 07:45 01/07/25 07:45 01/07/25 07:45 01/07/25 07:45 01/07/25 07:45
Physical Exam
Physical Exam
Constitutional: No Acute Distress and Non-toxic
Head: Normocephalic
Eyes: Pupils Equal and Pupils Round
Cardiovascular: Regular Rate and S1/S2; Negative Murmur or Rub
Pulmonary: Other (Decreased breath sounds in left lower lobe)
Gastrointestinal: Soft, Tender and Non Distended
Skin: Rash (red, flat with raised borders nonpuritic, seen on back, torso, extremities. )
Neurological: AO x 3
Psychological: Calm
Lab / Diagnostic Study Results
01/07/25 05:54
01/07/25 05:54
Abs Immat Gran (auto) 0.2 10^3/uL (0-0.05) H 01/06/25 19:48
Absolute Neuts (auto) 7.5 10^3/uL (1.4-6.5) H 01/06/25 19:48
Absolute Lymphs (auto) 1.0 10^3/uL (1.2-3.4) L 01/06/25 19:48
Absolute Monos (auto) 0.7 10^3/uL (0.1-0.6) H 01/06/25 19:48
Absolute Basos (auto) 0.1 10^3/uL (0-0.2) 01/06/25 19:48
Total Counted 100 01/07/25 05:54
Immature Gran % 1.8 % (0-0.5) H 01/06/25 19:48
Neutrophils % 77.8 % (42.2-75.2) H 01/06/25 19:48
Lymphocytes % 10.4 % (20.5-51.1) L 01/06/25 19:48
Monocytes % 7.4 % (1.7-9.3) 01/06/25 19:48
Eosinophils % 2.1 % (0-6) 01/06/25 19:48
Basophils % 0.5 % (0-2) 01/06/25 19:48
Abs Neuts (Manual) 7.7 10^3/uL (1.4-6.5) H 01/07/25 05:54
Segmented Neutrophils 72 % (42-75) 01/07/25 05:54
Band Neutrophils 10 % (0-3) H 01/07/25 05:54
Lymphocytes (Manual) 7 % (20-51) L 01/07/25 05:54
Eosinophils (Manual) 1 % (0-6) 01/07/25 05:54
ESR 71 mm/hour (0-20) H 01/07/25 05:54
Lactic Acid Cancelled 01/06/25 23:30
C-Reactive Protein > 270.00 mg/L (0.0-10.00) H 01/07/25 05:54
Microbiology Results
Micro:
01/07/25 00:06 Nasal Screen MRSA (PCR) - Pending
Nose
01/06/25 22:02 Influenza Types A & B (SD) - Final
Nasal Swab Negative for Influenza A & B, NAAT
Negative results must be combined with clinical observations
and patient history.
Nucleic Acid Amplification test (NAAT)performed on the
[email or web address] platform.
01/06/25 19:48 Blood Culture - Pending
Blood/Venous
01/06/25 19:49 Blood Culture - Pending
Blood/Venous
Imaging
01/06/25 chest [id number] lower lobe infiltrates, worse on the left, consistent with multifocal pneumonia.
01/06/25-chest CT-multifocal pneumonia more pronounced in left lower lobe with bilateral hilar lymphadenopathy. Calcification within the lateral right lower lobe as well as calcified right hilar lymph nodes
01/06/2025-abdominal ultrasound- The gallbladder appears contracted without sonographic evidence of cholelithiasis.
Assessment / Plan
Fever
Acute hypoxic respiratory insufficiency-on 2 L of oxygen
Distally spreading rash- probably drug reaction from Augmentin
Acute Transaminitis
Elevated ESR and CRP
PLAN
Currently afebrile, normal white count with a left shift
Chest x-ray showing bilateral lower lobe infiltrates
Stop cefepime, vancomycin, azithromycin
Start Levaquin 750 mg q24
No isolation precautions needed at this time.
Monitor temp curve and WBC
Monitor LFTs
--- NOTE | 2025-01-07 10:13 | CM ---
Patient with Dx Acute rash/fever, pneumonia, transaminitis. Airborne Precautions. O2 3L. Receiving IV/PO Abx. Rubeola IgM (measles) pending/Labs pending.
Spoke with patient who resides with his in a 2 story house.
The patient was independent in ADLs and ambulation.
The patient was active and working.
His only DME is crutches that he is not using.
No prior VN or SNF.
PCP - Issa Mai
Pharmacy - [facility]
No CM d/c needs identified.
Plan home.
[2025-01-07] MEDS: ZITHROMAX 500 MG PO (10:25)
[2025-01-07] MEDS: BENADRYL 25 MG PO (10:26)
--- NOTE | 2025-01-07 11:15 | PTCARENOTE ---
per MD and ID, pt to be taken off airborne precautions. rash likely drug reaction from Augmentin /Acute Transaminitis
[2025-01-07] MEDS: LEVAQUIN 750 MG PO (12:19)
--- NOTE | 2025-01-07 14:50 | W.PN.HOSP.TC ---
Today's Communication/Plan
-
Transition to oral levofloxacin
Follow LFTs
Monitor body rash
Wean off oxygen
Assessment / Plan
Assessment / Plan
Impression:
Multifocal community-acquired pneumonia
Diffuse body rash.
Elevated transaminases
Plan:
Multifocal and likely community-acquired pneumonia.
Given presenting rash, there is a reasonable concern for atypical pneumonia including mycoplasma.
Follow viral serology
Mycoplasma antibody sent
Follow blood cultures
Streptococcal and Legionella antigen pending
Antibiotics consolidated to oral levofloxacin.
No evidence of respiratory distress or hypoxia upon presentation. Had been placed on 2 L of oxygen with saturations in the mid 90s. Will wean off prior to discharge
Body rash not consistent with measles.
Suspect drug-induced reaction (Augmentin)
Less likely DRESS with absence of a significantly
Follow mycoplasma antibody.
Follow viral serology.
Mild elevation of transaminases with no symptoms.
Suspect DILI secondary to Augmentin
Abdominal sonogram with no hepatobiliary pathology
Follow LFTs trend
Anticipated Discharge: 24 - 48 hours
Subjective/Interval History
-
Date of Service: January 07, 2025
Objective Data
-
Labs:
Laboratory Results
01/07/25
05:54
WBC 9.4
Hgb 12.2 L
Hct 36.3 L
Plt Count 327
Sodium 137
Potassium 4.2
Chloride 103
Carbon Dioxide 27
BUN 15
Creatinine 0.7
Glucose 105 H
Calcium 7.7 L
Total Bilirubin 0.5
AST 198 H
ALT 145 H
Alkaline Phosphatase 379 H
Vital Signs:
Vital Signs
Temp Pulse Resp BP Pulse Ox
99.3 F 102 16 129/77 93
01/07/25 07:45 01/07/25 07:45 01/07/25 07:45 01/07/25 07:45 01/07/25 11:14
I&O
01/06/25 01/07/25 01/08/25
06:59 06:59 06:59
Intake Total 1585 / 1585
Balance 1585 / 1585
Physical Exam
-
General: Well Developed and No Apparent Distress
HEENT: Normocephalic, Atraumatic and Moist Mucous Membranes
Respiratory: Clear to Auscultation
Cardiac: Regular Rhythm and S1/S2; Negative Murmur, Rub or Gallop
GI: Soft, Nontender, Nondistended and Normal Bowel Sounds; Negative Organomegaly
Rectal: Deferred by Provider
Musculoskeletal: No Clubbing, No Cyanosis and No Edema
Skin: Negative Rash
Neuro: Nonfocal/Grossly Intact
[2025-01-07 15:35] VITALS: BP 126/75
[2025-01-07 19:00] VITALS: BP 125/72
[2025-01-07 19:32] LABS: Hepatitis B Surface Antigen Negative (Negative)
[2025-01-07 19:50] LABS: Hepatitis A Antibody, Total Negative (Negative); Hepatitis B Surface Antibody Negative; Hepatitis C Antibody Negative (Negative)
[2025-01-07 19:58] LABS: Rubella Negative
[2025-01-07 23:18] VITALS: BP 126/68
[2025-01-08 03:00] VITALS: BP 114/68
[2025-01-08 05:46] VITALS: BMI 23.6
[2025-01-08 07:20] VITALS: BP 137/78
[2025-01-08 07:34] LABS: % Basophils 0.5 % (0-2); % Eosinophils 5.2 % (0-6); % Immature Granulocytes 4.8 % (0-0.5); % Lymphocytes 16.3 % (20.5-51.1); % Monocytes 7.5 % (1.7-9.3); % Neutrophils 65.7 % (42.2-75.2); Absolute Basophils 0.1 10^3/uL (0-0.2); Absolute Eosinophils 0.5 10^3/uL (0-0.7); Absolute Immature Granulocytes 0.5 10^3/uL (0-0.05); Absolute Lymphocytes 1.6 10^3/uL (1.2-3.4); Absolute Monocytes 0.7 10^3/uL (0.1-0.6); Absolute Neutrophils 6.3 10^3/uL (1.4-6.5); Hematocrit 35.1 % (39.0-52.0); Mean Corp Hgb Conc. 34.2 g/dL (33.0-37.0); Mean Platelet Volume 9.2 fL (7.4-10.4); Nucleated Red Blood Cells % 0 % (-); Platelet Count 407 10^3/uL (130-400); Red Blood Cell Count 4.28 10^6/uL (4.70-6.10); Red Cell Dist. Width 14.9 % (11.5-14.5); White Blood Cell Count 9.6 10^3/uL (4.8-10.8)
[2025-01-08 07:53] LABS: ALT (SGPT) 160 U/L (0-50); AST (SGOT) 154 U/L (17-59); Albumin 2.4 g/dl (3.5-5.0); Alkaline Phosphatase 307 U/L (38-126); Blood Urea Nitrogen 11 mg/dl (9-20); Calcium 7.9 mg/dl (8.4-10.2); Carbon Dioxide 28 mmol/L (22-30); Chloride 102 mmol/L (98-107); Estimated Creatinine Clearance 123 ml/min; Glucose 95 mg/dl (70-99); Potassium 4.7 mmol/L (3.5-5.1); Sodium 136 mmol/L (135-145); Total Bilirubin 0.6 mg/dl (0.2-1.3); Total Protein 5.1 g/dl (6.3-8.2); eGFR > 60.00
[2025-01-08] MEDS: LEVAQUIN 750 MG PO (08:15)
--- NOTE | 2025-01-08 10:17 | W.PN.ID1 ---
Addendum entered and electronically signed by Memo Cespedes DO 01/08/25 12:35:
I saw and evaluated the patient. I reviewed the resident�s note and agree with findings and plan as documented in the resident�s note.
Patient feeling improved. Rash improved.
Continue with Levaquin to complete a 5-day course for community-acquired pneumonia.
Discussed utility of initiating adult vaccine series with patient. Advised follow-up with PCP regarding further vaccinations.
Recommend follow-up CXR in 4 to 6 weeks to assess resolution of infiltrates.
Original Note:
Date of Service
Date of Service: January 08, 2025
Today's Communication
continue antibiotics
Assessment / Plan
Fever
Acute hypoxic respiratory insufficiency-on 2 L of oxygen
Distally spreading rash- not consistent with measles.
Acute Transaminitis
Elevated ESR and CRP
PLAN
Currently afebrile, normal WBC.
Continue treatment for CAP
Continue oral Levaquin 750 mg q24- day 2
Negative strep pneumo and legionella urinary antigen
Monitor temp curve and WBC
Monitor LFTs
Chief Complaint
-: Pneumonia
Subjective / Review of Systems
Review of Systems: No Fever, No Chills, No Headache and Skin Rash
Vital Signs / Physical Exam
Vital Signs
Vital Signs
Temp Pulse Resp BP Pulse Ox
98.2 F 91 20 137/78 94
01/08/25 07:20 01/08/25 07:20 01/08/25 07:20 01/08/25 07:20 01/08/25 07:20
Physical Exam
Constitutional: No Acute Distress and Non-toxic
Head: Normocephalic
Eyes: Pupils Equal and Pupils Round
Cardiovascular: Regular Rate and S1/S2
Pulmonary: Other (decreased breath sounds at the bases bilaterally)
Gastrointestinal: Non Distended
Skin: Rash (improving )
Neurological: AO x 3
Psychological: Calm
Objective Data
Lab Data
Lab Results
01/08/25 06:44
01/08/25 06:44
ESR 71 mm/hour (0-20) H 01/07/25 05:54
Estimated Creat Clear 123 ml/min 01/08/25 06:44
Lactic Acid Cancelled 01/06/25 23:30
Total Bilirubin 0.6 mg/dl (0.2-1.3) 01/08/25 06:44
AST 154 U/L (17-59) H 01/08/25 06:44
ALT 160 U/L (0-50) H 01/08/25 06:44
Alkaline Phosphatase 307 U/L (38-126) H 01/08/25 06:44
C-Reactive Protein > 270.00 mg/L (0.0-10.00) H 01/07/25 05:54
Most recent labs reviewed.
Micro Results:
01/06/25 19:49 Blood Culture - Preliminary
Blood/Venous No Growth in 24 hours- Final report to follow
01/06/25 19:48 Blood Culture - Preliminary
Blood/Venous No Growth in 24 hours- Final report to follow
01/07/25 14:19 Legionella Urinary Antigen - Final
Urine Negative for Legionella pneumophila Serogroup 1 antigen.
A negative result does not rule out the possiblity of
Legionella infection due to other serogroups or species of
Legionella. Clinical correlation is recommended.
Streptococcus pneumoniae Antigen (M - Final
Negative for Streptococcus pneumoniae antigen.
A negative result does not exclude infection with
Streptococcus pneumoniae. Clinical correlation is
recommended.
01/07/25 00:06 Nasal Screen MRSA (PCR) - Final
Nose MRSA not detected - performed by PCR methodology.
01/06/25 22:02 Influenza Types A & B (SD) - Final
Nasal Swab Negative for Influenza A & B, NAAT
Negative results must be combined with clinical observations
and patient history.
Nucleic Acid Amplification test (NAAT)performed on the
[employer] platform.
Imaging
01/06/25 chest [id number] lower lobe infiltrates, worse on the left, consistent with multifocal pneumonia.
01/06/25-chest CT-multifocal pneumonia more pronounced in left lower lobe with bilateral hilar lymphadenopathy. Calcification within the lateral right lower lobe as well as calcified right hilar lymph nodes
01/06/2025-abdominal ultrasound- The gallbladder appears contracted without sonographic evidence of cholelithiasis.
[2025-01-08 11:25] VITALS: BP 119/72
--- NOTE | 2025-01-08 12:35 | PTCARENOTE ---
pt walked unit for home o2 assessment with this RN. pt remained above 92% and had no sob or dyspnea with exertion.
--- NOTE | 2025-01-08 12:43 | W.DS.TRANS ---
DC Summary - [employer]
-
Discharge Instructions:
Discharge Diagnosis/Procedures Multifocal pneumonia
Diet Regular
Additional Diets CXR to follow up with bilateral pneumonia in 3-4
weeks
Instructions:
Stand-Alone Forms:
Changes to Home Medications: Yes
Discharge Medications:
DC Medications w/original date entered in [employer]
cetirizine 10 mg tablet 10 mg PO DAILYPRN PRN allergies 01/06/25
ibuprofen 200 mg tablet (Advil) 200 mg PO Q6HPRN PRN mild pain/fever 01/06/25
guaifenesin 600 mg tablet, extended release 12 hr (Mucinex) 600 mg PO Q12H #60 tabs 01/08/25
levofloxacin 750 mg tablet 750 mg PO DAILY #3 tabs 01/08/25
Home Medication Changes
Antibiotics changed to Levaquin to complete total of 5 days course
Pending Results: Yes
Total time spent discharging patient (in min): M pneumonia serology
--- NOTE | 2025-01-08 15:05 | PN.CDI ---
CDI
- -
CDI:
Physician Documentation Request
Admit Date: 01/06/25 21:36
Dear Doctor Sandra,
Patient admitted with pneumonia.
ED note, ' Discharge Problem: Sepsis due to pneumonia.'
4/3 PN, 'Multifocal community-acquired pneumonia.'
On admission, T max 101.6, HR >90 and RR>20.
Please update the status of the sepsis documented in the ED note:
Sepsis, POA is a valid diagnosis for this patient
Sepsis, POA is not a valid diagnosis for this patient
Other
Use of terms such as suspected, likely, concern for, or probable (associated with a specific diagnosis that is being evaluated, monitored, or treated as if it exists) are acceptable and can be coded in the inpatient setting, when documented at the
time of discharge.
Thank you,
Carol LEONARDO,RN,CCDS
CDI Specialist
Available via [employer] text
Please use your independent medical judgment in providing your response.
[2025-01-09 02:12] LABS: EBV-EA (D) Ab IgG 11.8 U/mL (0.0-10.9); EBV-VCA IgM Antibodies <10.0 U/mL (0.0-43.9)
[2025-01-09 16:15] LABS: Mycoplasma pneumoniae-IgM 0.03 U/L (<=0.76)
[2025-01-09 16:42] LABS: IgE 485 kU/L (<=214)
[2025-01-11 06:28] LABS: Babesia microti IgG < 1:16 (< 1:16); Babesia microti IgM <1:20 (<1:20)
[2025-01-11 11:53] LABS: Lyme Antibody Screen, EIA Negative (Negative)
[2025-01-11 17:01] LABS: Parvo B19 Ab, IgM 0.43 IV (<=0.89); Parvo Virus B19 Ab, IgG 7.63 IV (<=0.90)
[2025-01-11 17:18] LABS: Rubeola Virus IgM (Measles) 0.22 AU (0.00-0.79)
[2025-01-11 17:45] LABS: Mumps Virus IgM 0.62 IV (<=0.79)
== END 2025-01-08 14:21 | disposition home or self-care (01) | DRG 195 ==
LOC: 2 NORTH 21:36
PROVIDERS: Clinical Nurse Specialist Family Health; ADMITTING PHYSICIAN Internal Medicine; ATTENDING PHYSICIAN Internal Medicine; CONSULT PHYSICIAN Internal Medicine Infectious Disease; EMERGENCY PHYSICIAN Emergency Medicine; FAMILY PHYSICIAN Family Medicine; OTHER PHYSICIAN Internal Medicine
DX: J18.9 Pneumonia, unspecified organism (principal); R09.02 Hypoxemia; R74.01 Elevation of levels of liver transaminase levels; R06.89 Other abnormalities of breathing; L27.0 Generalized skin eruption due to drugs and medicaments taken internally; R59.0 Localized enlarged lymph nodes; J92.0 Pleural plaque with presence of asbestos; R79.82 Elevated C-reactive protein (CRP); R70.0 Elevated erythrocyte sedimentation rate; T36.0X5A Adverse effect of penicillins, initial encounter; T36.1X5A Adverse effect of cephalosporins and other beta-lactam antibiotics, initial encounter; Y92.9 Unspecified place or not applicable; Z77.090 Contact with and (suspected) exposure to asbestos; Z28.39 Other underimmunization status
CPT/HCPCS: 71046; 71260; 76700; 80053; 82785; 83605; 85025; 85652; 86140; 86308; 86618; 86663; 86664; 86665; 86666; 86698; 86706; 86708; 86735; 86738; 86747; 86753; 86762; 86765; 86803; 87040; 87340; 87449; 87502; 87641; 87811; 87899; 96361; 96374; 96375; 99285; Q9967

== ENCOUNTER 2025-01-09 12:03 | Inpatient (IN) | payer OTHER, SELFPAY ==
[2025-01-09] VITALS (8 sets, daily range): BP systolic 127–146; BP diastolic 75–86; BMI 23.2; BMI 22.6
--- NOTE | 2025-01-09 07:06 | ED.GENMED ---
History of Present Illness
General
Chief Complaint: Breathing Problem
Source: patient and spouse
Time Seen by Provider: 01/09/25 06:49
History of Present Illness
History of Present Illness:
59-year-old male presents to the emergency room complaining of feeling significantly short of breath. Patient was hospitalized here at [facility] for pneumonia. He was admitted on January 06 discharged on January 08. While in the hospital the patient
states he was on oxygen the entire time. He was discharged without oxygen. He could not sleep due to shortness of breath. He had a home pulse oximeter which read as low as 70% while sleeping. Patient denies any fever or chills. He continues to
feel weak. He does not feel like he has become significantly worse but just felt short of breath without oxygen.
Past History
Past History
ED Past Medical History: None
ED Past Surgical History: Other (Cyst removed from finger)
Social History
Tobacco: Other
Alcohol: Other
Drug: None
Personal:
Living: with family
Employment: Employed
Family History
Family History: Other
Phy Exam
Physical Exam
Physical Exam:
General: Awake, Alert, Oriented X3. No acute distress.
Vitals: Hypoxic on room air
Head: Atraumatic
Eyes: Pupils equal, EOMI
Throat: Airway intact, no exudates
Neck: Trachea midline
Lungs: Crackles rhonchi bilaterally
Heart: Regular rate, no murmurs
Abd: Soft, Nontender, No pulsatile mass
Neuro: Nonfocal
Skin: Warm, dry, no rash
Extremities: pulses equal b/l, no edema
Scores
Heart Failure Risk
Heart Failure Risk Score: Not Applicable
Sepsis
Sepsis Screening
Sepsis Assessment: Sepsis Ruled Out
Sepsis Screen
Sepsis Screen: Sepsis Ruled Out
Date: 01/09/25
Time: 14:39
Course
Orders/Labs/Results
Orders:
Orders
01/09/25 07:05
CR Chest - 2 Views Urgent
Comment:
Reason For Exam: hypoxia
01/09/25 07:11
Ipratropium/Albuterol Sulfate [Duoneb] 3 ml INH R NOW ONE
01/09/25 07:29
Basic Metabolic Panel Urgent
Complete Blood Count/With Diff Urgent
01/09/25 07:36
Case Management Consult ONCE
Case Management Consult: Durable Medical Equip
01/09/25 Lunch
Regular
At Your Request: Full Participation
01/09/25 11:33
Admit/Transfer Patient As Directed
Co-Sign Provider:
Level of Care: Inpatient admission
Assign to:: Medical/Surgical
Physician / Group: [facility]/Hospitalist
Diagnosis: Pneumonia
Reason for Hospitalization: Pneumonia
Hypoxemia
Expected length of stay greater than two midnights?: Yes
ELOS- Estimated Length of Stay in days: 4
I certify the patient meets the requirements for IP care: Yes
01/09/25 11:34
PRN Pain Medication Management As Directed
May give lesser potent ordered pain med per pt: Yes
preference::
Protocol:: Medication orders for pain may be administered in a
manner that supports deferring to patient preference
when the pt is:
- Requesting an ordered lesser potent pain medication.
Least to most potent pain medications are defined
as: acetaminophen < NSAID < tramadol < opioids
(morphine, oxycodone, hydromorphone).
- Requesting a lesser dose of the same medication IF
ORDERED.
- Requesting a less intrusive route of administration
if both routes are prescribed by the provider (PO <
IV).
01/09/25 11:35
Code Status As Directed
Resuscitation Status: Full Code
01/09/25 11:50
Consult Pulmonary [PULMONARY CONSULT] Routine
Consulting Provider: Malena Rincon
Was physician already notified: Yes
01/09/25 12:42
Acetaminophen [Tylenol] 650 mg PO Q4HPRN PRN
Bisacodyl [Dulcolax] 10 mg RECTAL [id number] PRN
Cetirizine HCl [Zyrtec] 10 mg PO DAILYPRN PRN
Docusate W/Senna [Senokot-S] 1 tablet PO BIDPRN PRN
Polyethylene Glycol Powder [Miralax] 17 grams PO DAILYPRN PRN
01/09/25 12:42
Activity As Directed
Activity Level: Out of Bed-Early Mobility
Vital Signs As Directed
Frequency: Per unit guidelines
O2 Therapy [RESP] Routine
Nasal Cannula Liter Flow: 2 LPM
Titrate/Wean O2 to maintain O2 sat greater than (%): 90
DX Deep Vein Thrombosis Video Routine
01/09/25 18:00
Guaifenesin [Mucinex] 600 mg PO Q12H
01/09/25 20:00
Heparin 5,000 units SC Q12
01/09/25 23:00
Pulse Ox/nocturnal-trend w prt [RESP] Routine
Quantity: 1
Desired Oxygen Settin
01/10/25 06:00
Complete Blood Count/With Diff IN AM
Comprehensive Metabolic Panel IN AM
01/10/25 08:00
LevoFLOXacin [Levaquin] 750 mg PO DAILY
Abnormal Lab Results
01/09/25
07:29
WBC 11.8 H 10^3/uL
(4.8-10.8)
RBC 4.57 L 10^6/uL
(4.70-6.10)
Hgb 12.8 L g/dL
(13.0-18.0)
Hct 38.2 L %
(39.0-52.0)
RDW 15.0 H %
(11.5-14.5)
Plt Count 496 H D 10^3/uL
(130-400)
Abs Immat Gran (auto) 0.6 H 10^3/uL
(0-0.05)
Absolute Neuts (auto) 8.5 H 10^3/uL
(1.4-6.5)
Absolute Monos (auto) 0.9 H 10^3/uL
(0.1-0.6)
Immature Gran % 5.3 H %
(0-0.5)
Lymphocytes % 10.4 L %
(20.5-51.1)
Glucose 109 H mg/dl
(70-99)
01/09/25 07:29
01/09/25 07:29
Vital Signs
Initial and Last Documented VS:
Initial Vital Signs
Temp Pulse Resp BP Pulse Ox
98.7 F 93 26 140/83 88
01/09/25 06:37 01/09/25 06:37 01/09/25 06:37 01/09/25 06:37 01/09/25 06:37
Last Documented Vital Signs
Temp Pulse Resp BP Pulse Ox
98.2 F 85 20 127/86 98
01/09/25 14:12 01/09/25 14:12 01/09/25 14:12 01/09/25 11:00 01/09/25 14:12
MDM/Problems Addressed
Differential Diagnosis Includes:
Worsening pneumonia, hypoxia from existing pneumonia, deconditioning, anemia
MDM/Problems Addressed:
Patient presents with dyspnea and hypoxia with moderate exertion as well as while sleeping. Chest x-ray appears similar to previous chest x-ray. At rest he is comfortable with 2 L supplemental oxygen. Discussed with pulmonary. Given the
significance of his pneumonia and the fact he bounced right back after discharge he recommends at least hospitalization overnight. Patient will require further evaluation to determine his oxygen needs upon discharge.
*Radiology
Radiology exam reviewed: preliminary read by ED provider (Similar to previous chest x-ray on my review)
*Pulse Oximetry
Patient hypoxic: yes
*Critical Care Note
Total Time (30-74mins, 75-104mins- exclusive of procedures): Not Applicable
ED Attending Note
-
Portions of this chart may have been created with voice recognition software.� Occasional wrong word or��sound alike� substitutions may have occurred due to the inherent limitations of voice recognition software.
Discharge Plan
Departure
Patient Disposition: Admit
Date of Disposition: 01/09/25
Time of Disposition: 09:00
Admit to: Med/Surg
Presentation/result/management discussed w/ accepting MD/DO: Hospitalist
Condition: Fair
Discharge Problem:
Hypoxia, Multifocal pneumonia
Interventions
Interventions:
*Risk Screen - Suicide Last Done: 01/09/25 07:31
*General Assessment Last Done: 01/09/25 06:49
*Neglect/Abuse Screening Last Done: 01/09/25 06:49
*ED- Fall Risk Assessment Last Done: 01/09/25 06:49
*ED COVID-19 Vaccine History Last Done: 01/09/25 06:49
ED- Cardiac Assessment Last Done: 01/09/25 07:00
ED- Pulmonary Assessment Last Done: 01/09/25 07:00
[2025-01-09] MEDS: DUONEB 3 ML INH (07:21)
[2025-01-09 07:53] LABS: Blood Urea Nitrogen 13 mg/dl (9-20); Calcium 8.4 mg/dl (8.4-10.2); Carbon Dioxide 26 mmol/L (22-30); Chloride 103 mmol/L (98-107); Estimated Creatinine Clearance 123 ml/min; Glucose 109 mg/dl (70-99); Potassium 4.7 mmol/L (3.5-5.1); Sodium 137 mmol/L (135-145); eGFR > 60.00
[2025-01-09 08:01] LABS: Hematocrit 38.2 % (39.0-52.0); Hemoglobin 12.8 g/dL (13.0-18.0); Mean Corp Hgb Conc. 33.5 g/dL (33.0-37.0); Mean Corpuscular Volume 83.6 fL (80.0-94.0); Platelet Count 496 10^3/uL (130-400); Red Blood Cell Count 4.57 10^6/uL (4.70-6.10); White Blood Cell Count 11.8 10^3/uL (4.8-10.8)
[2025-01-09 08:57] LABS: % Basophils 0.3 % (0-2); % Eosinophils 4.4 % (0-6); % Immature Granulocytes 5.3 % (0-0.5); % Lymphocytes 10.4 % (20.5-51.1); % Monocytes 7.4 % (1.7-9.3); % Neutrophils 72.2 % (42.2-75.2); Absolute Eosinophils 0.5 10^3/uL (0-0.7); Absolute Immature Granulocytes 0.6 10^3/uL (0-0.05); Absolute Lymphocytes 1.2 10^3/uL (1.2-3.4); Absolute Monocytes 0.9 10^3/uL (0.1-0.6); Absolute Neutrophils 8.5 10^3/uL (1.4-6.5); Nucleated Red Blood Cells % 0 % (-)
--- NOTE | 2025-01-09 12:29 | W.PN.HOSP.TC ---
Today's Communication/Plan
-
continue Levaquin
check nocturnal oxygenation
?MEGAN
Assessment / Plan
Assessment / Plan
Persistent PNA symptoms
Pt was hospitalized 01/06-01/08/25 for multifocal CAP. Since dc from hospital has not felt well, remains significantly sob with any exertion and thus returned to hospital today
Hypoxemia
tested oxygen level at home with SaO2 as low as 70's while sleeping
Allergic skin rxn to probable PCN
P:continue Levaquin
Pulm consult
defer to pulm if benefit to steroids (did not appreciate wheeze)
Full Code
see dictated note
Anticipated Discharge: 24 - 48 hours
Subjective/Interval History
-
Date of Service: January 09, 2025
Short of breath and does not feel well
Objective Data
-
Labs:
Laboratory Results
01/09/25
07:29
WBC 11.8 H
Hgb 12.8 L
Hct 38.2 L
Plt Count 496 H D
Sodium 137
Potassium 4.7
Chloride 103
Carbon Dioxide 26
BUN 13
Creatinine 0.7
Glucose 109 H
Calcium 8.4
Vital Signs:
Vital Signs
Temp Pulse Resp BP Pulse Ox
98.7 F 91 25 127/86 94
01/09/25 06:37 01/09/25 12:00 01/09/25 12:00 01/09/25 11:00 01/09/25 12:00
Review of Systems
-
History Source: Patient and Family ( at bedside)
Constitutional: Denies Fever
EENT: Reports No Symptoms Reported
Respiratory: Reports Cough and Trouble Breathing
Cardiac: Reports No Symptoms; Denies Chest Pain
Abdomen/GI: Reports No Symptoms
Genitourinary: Reports No Symptoms
Musculoskeletal: Reports No Symptoms
Skin: Reports Rash
Neuro: Reports No Symptoms
Physical Exam
-
General: Well Developed, Well Nourished and No Apparent Distress; Negative Appears in Distress
HEENT: Normocephalic, Atraumatic and Moist Mucous Membranes
Respiratory: Rales (diffuse interstitial rales)
Cardiac: Regular Rhythm and S1/S2
GI: Soft, Nontender and Nondistended
Musculoskeletal: No Clubbing, No Cyanosis and No Edema
Skin: Rash (PCN type rash, on back evidence of superimposed 'sweat' rash)
Neuro: Awake, Alert and Oriented
Psych: Calm
--- NOTE | 2025-01-09 15:26 | CM ---
Initial assessment completed at bedside in the ED
Family Physician: Issa Mai
Pharmacy verified: [facility] @ [id number]
Lives with ; multilevel home; 2 steps to enter; 13 steps between floors; railings on stairs; powder room 1st floor; 2nd floor bath tub w/ shower
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
NO DME
NO SNF or Home Health utilization history
will transport home
Plan: anticipate discharge to home when medically stable; CM will monitor for discharge needs/services
[2025-01-09] MEDS: MUCINEX 600 MG PO (17:49)
[2025-01-09] MEDS: DELTASONE 40 MG PO (17:50)
[2025-01-09] MEDS: HEPARIN SC (20:36)
[2025-01-10 00:27] VITALS: BP 139/83
[2025-01-10 04:52] LABS: % Basophils 0.3 % (0-2); % Eosinophils 0.1 % (0-6); % Immature Granulocytes 4.8 % (0-0.5); % Monocytes 2.8 % (1.7-9.3); Absolute Immature Granulocytes 0.6 10^3/uL (0-0.05); Absolute Monocytes 0.3 10^3/uL (0.1-0.6); Absolute Neutrophils 10.2 10^3/uL (1.4-6.5); Hematocrit 40.3 % (39.0-52.0); Hemoglobin 13.6 g/dL (13.0-18.0); Mean Corp Hgb Conc. 33.7 g/dL (33.0-37.0); Mean Corpuscular Hgb 27.6 pg (27.0-31.0); Mean Corpuscular Volume 81.9 fL (80.0-94.0); Mean Platelet Volume 8.4 fL (7.4-10.4); Nucleated Red Blood Cells % 0 % (-); Platelet Count 533 10^3/uL (130-400); Red Blood Cell Count 4.92 10^6/uL (4.70-6.10); Red Cell Dist. Width 14.8 % (11.5-14.5); White Blood Cell Count 12.2 10^3/uL (4.8-10.8)
[2025-01-10 05:24] LABS: ALT (SGPT) 164 U/L (0-50); AST (SGOT) 126 U/L (17-59); Albumin 2.8 g/dl (3.5-5.0); Alkaline Phosphatase 259 U/L (38-126); Blood Urea Nitrogen 16 mg/dl (9-20); Calcium 8.7 mg/dl (8.4-10.2); Carbon Dioxide 27 mmol/L (22-30); Chloride 104 mmol/L (98-107); Estimated Creatinine Clearance 120 ml/min; Glucose 160 mg/dl (70-99); Potassium 5.6 mmol/L (3.5-5.1); Sodium 138 mmol/L (135-145); Total Bilirubin 0.6 mg/dl (0.2-1.3); Total Protein 5.9 g/dl (6.3-8.2); eGFR > 60.00
[2025-01-10 05:29] LABS: Procalcitonin 0.19 ng/ml (0.0-0.25)
[2025-01-10] MEDS: MUCINEX 600 MG PO ×2 (05:31→17:22)
--- NOTE | 2025-01-10 07:10 | CON.PUL ---
Consultation
Consultation Request
Date/Time Consultation Requested: 01/09/2025
Date/Time Consultation Performed: 01/10/2025
Requesting Provider: Angel Leon
Performing Provider: Malena Rincon
Reason for Consultation: Shortness of breath
Medical History
-
Chief Complaint: Shortness of breath
History of Present Illness:
Patient is a 59-year-old gentleman who presented to the emergency room for shortness of breath. Patient denies any worsening cough, wheezing, expectoration or fever. However he noted low oxygen saturations at night and also reported getting
shortness of breath with some exertion. In the emergency room he was noted to be hypoxic requiring supplemental oxygen and he was admitted to the hospital. Pulmonary consultation was requested for further input.
Last week, he presented to hospital with fever, rash and cough. Patient's illness started about 10 days ago when he had generalized bodyaches and fever. He was empirically treated with Tamiflu as outpatient. Subsequently he presented to
[facility] emergency room because of left-sided retro-orbital pain. He had a CT scan in the hospital which was essentially negative. He was suspected to have otitis media and was started on Augmentin. 3 days into Augmentin therapy, patient broke
out into a urticarial rash in addition to having cough and some fever. He was brought back to the emergency room where he was noted to have large left-sided pneumonia. There was concern for measles/viral exanthem and he was admitted to the
hospital. It was felt to be drug rash related to Augmentin which was discontinued and the rash has been improving since.
Past Medical History: Reports None
Past Surgical History: Reports None
Social History
Tobacco: Non-smoker
Alcohol: None
Personal:
Living: With Family
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 No reported exposure to Asbestos. Reports exposure to Silica/cement etc. Wears mask etc.
Family History
Family History: Not pertinent and Other
Allergies / Home Medications
Allergies / Home Medications
Allergies / Home Medications
Allergies
Allergy/AdvReac Type Severity Reaction Status Date / Time
amoxicillin Allergy Severe Rash Verified 01/09/25 06:53
Home Medications
�Medication �Instructions �Recorded �Confirmed �Last Taken �Type
cetirizine 10 mg tablet 10 mg PO DAILYPRN PRN allergies 01/06/25 01/09/25 01/08/25 History
ibuprofen 200 mg tablet (Advil) 200 mg PO Q6HPRN PRN mild 01/06/25 01/09/25 01/08/25 History
pain/fever
guaifenesin 600 mg tablet, 600 mg PO Q12H #60 tabs 01/08/25 01/09/25 01/08/25 Rx
extended release 12 hr (Mucinex)
levofloxacin 750 mg tablet 750 mg PO DAILY #3 tabs 01/08/25 01/09/25 01/09/25 Rx
Review of Systems
-
Hematologic/Lymphatic: Other (All 14 systems reviewed and negative except as stated above in the history of present illness.)
Vitals / Labs / Diagnostic Testing
Vital Signs
Temp Pulse Resp BP Pulse Ox
97.9 F 88 17 129/75 97
01/09/25 15:45 01/09/25 15:45 01/09/25 15:45 01/09/25 15:45 01/09/25 15:45
Lab Data
01/09/25 07:29
01/09/25 07:29
Diagnostic Testing:
Physical Exam
-
HEENT: Normocephalic
Cardiovascular: Regular Rhythm
Respiratory: Clear (Some rhonchi in LLL, otherwise benign exam )
GI: Soft and Non Distended
Neurology: Awake and Alert
Skin: Warm
General: Comfortable
Assessment
-
#1. Multifocal pneumonia, primarily LLL, also RLL infiltrates.
-Continue levofloxacin as ordered
-Added prednisone 40 mg daily in view of severity of pneumonia
-Considering multifocal nature and overall severity with hypoxia, will aim for at least 10 days of antibiotics
-Blood cultures, influenza, COVID-19 screen, Legionella and strep pneumo antigen have been negative. MRSA screen negative. Screen for HIV
-If any clinical worsening, will consider Bronchoscopy and BAL with biopsy
-Considering dense infiltrates, patient will need f/u imaging in 6-8 weeks time
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 Wears mask at work, imaging features not typical of occupation exposure
-Please have him ambulate in the carrion and see if he needs to be discharged on home oxygen. Will recommend 4 more days of prednisone therapy and continuing oral levofloxacin 750 daily up until 01/16. Patient can be discharged home if otherwise
stable. Will arrange outpatient follow-up with pulmonary clinic.
#2. Acute hypoxic respiratory failure.
-This is in the setting of underlying pneumonia
-Patient responding well to supplemental oxygen
-CT with contrast on 01/06 was negative for any pulmonary embolism
#2. Rash. Drug rash related to Augmentin
-Clinically improving
-Off Augmentin now
#3. Mildly elevated LFTs
-Could be related to Augmentin as well
-Improving
Pulmonary team will continue to follow while patient is in the hospital.
Total time spent on this consultation/encounter _42___ minutes which includes review of history, physical exam, medications, laboratory data, personal review of imaging, extensive review of outpatient records, discussion with care team and
respiratory therapy.
Data:
01/09/2025: 1. VERY SEVERE LEFT LOWER LOBAR PNEUMONIA with severe dense airspace consolidation throughout the entire left lower lobe which appears unchanged.
2. MODERATE to SEVERE PNEUMONIA in the superior segment of the RIGHT LOWER LOBE which appears unchanged.
3. Chronic granulomatous disease infection.
01/2025: 1. There is multifocal pneumonia most pronounced in the left lower lobe which is near completely opacified. Recommend follow-up to exclude underlying mass.
2. There is bilateral hilar lymphadenopathy measuring up to 1.1 cm, likely reactive.
3. Calcification within the lateral right lower lobe as well as calcified right hilar lymph nodes which are likely sequelae of prior granulomatous infection.
4. Bilateral apical calcified pleural plaques which are likely sequelae of prior asbestos exposure.
[2025-01-10 07:39] VITALS: BP 121/76
[2025-01-10] MEDS: HEPARIN 5000 UNITS SC (07:59)
[2025-01-10] MEDS: DELTASONE 40 MG PO (07:59)
[2025-01-10] MEDS: LEVAQUIN 750 MG PO (07:59)
[2025-01-10 16:00] VITALS: BP 137/83
--- NOTE | 2025-01-10 16:00 | W.PN.HOSP.TC ---
Today's Communication/Plan
-
dc to home Patient is in need of oxygen on exertion due to pulse oximetry of 91% on room air at rest; 87% on room air with exertion.
Patient was placed on 3L O2 via nasal cannula with saturation of 90%. Oxygen will help to improve hypoxemia.
Patient is mobile within the home. Albuterol therapy has been discussed and is ineffective in treating hypoxemia-related symptoms.
Oxygen will improve the patient's symptoms.
Noted nocturnal hypoxemia to 76%. Will need MEGAN evaluation.
Assessment / Plan
Assessment / Plan
Persistent PNA symptoms
Pt was hospitalized 01/06-01/08/25 for multifocal CAP. Since dc from hospital has not felt well, remains significantly sob with any exertion and thus returned to hospital. Has been cleared by pulm to be dc and will see in office
Hypoxemia
tested oxygen level at home with SaO2 as low as 70's while sleeping
Allergic skin rxn to probable PCN
P:continue Levaquin
Pulm consult
Full Code
see dictated note
Anticipated Discharge: Today
Subjective/Interval History
-
Date of Service: January 10, 2025
Pt feels well and would like to be dc
Objective Data
-
Labs:
Laboratory Results
01/10/25
04:36
WBC 12.2 H
Hgb 13.6
Hct 40.3
Plt Count 533 H
Sodium 138
Potassium 5.6 H
Chloride 104
Carbon Dioxide 27
BUN 16
Creatinine 0.7
Glucose 160 H
Calcium 8.7
Total Bilirubin 0.6
AST 126 H
ALT 164 H
Alkaline Phosphatase 259 H
Vital Signs:
Vital Signs
Temp Pulse Resp BP Pulse Ox
98.1 F 84 16 121/76 93
01/10/25 07:39 01/10/25 07:39 01/10/25 07:39 01/10/25 07:39 01/10/25 09:14
Review of Systems
-
History Source: Patient and Family ( at bedside)
Constitutional: Denies Fever
EENT: Reports No Symptoms Reported
Respiratory: Reports Cough and Trouble Breathing
Cardiac: Reports No Symptoms; Denies Chest Pain
Abdomen/GI: Reports No Symptoms
Genitourinary: Reports No Symptoms
Musculoskeletal: Reports No Symptoms
Skin: Reports Rash
Neuro: Reports No Symptoms
Physical Exam
-
General: Well Developed, Well Nourished and No Apparent Distress; Negative Appears in Distress
HEENT: Normocephalic, Atraumatic and Moist Mucous Membranes
Respiratory: Rales (diffuse interstitial rales)
Cardiac: Regular Rhythm and S1/S2
GI: Soft, Nontender and Nondistended
Musculoskeletal: No Clubbing, No Cyanosis and No Edema
Skin: Rash (PCN type rash, on back evidence of superimposed 'sweat' rash)
Neuro: Awake, Alert and Oriented
Psych: Calm
--- NOTE | 2025-01-10 16:03 | CM ---
CM following re: d/c planning.
Pt for d/c home today. Home o2 assessment completed - pt will need o2 with exertion and nocturnal o2.
Arrangements made with [facility] [facility].
Portable o2 will arrive within the hour, pt made aware to call [facility] [phone] en route home.
Remainder of equipment will be delivered in the home.
Pt agreed to [facility] referral also due to new DME.
Goal: home with [facility] and new home o2.
All questions answered, family transport home today.
--- NOTE | 2025-01-10 16:21 | W.DS.TRANS ---
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
-
Discharge Instructions:
Discharge Diagnosis/Procedures Pneumonia
Diet Regular
Activity No strenuous activity
Driving Restrictions only with supplemental oxygen
Bathing Restrictions None
Blood Work cbc, cmp
Other Services VN
Instructions:
Stand-Alone Forms:
Changes to Home Medications: Yes
Discharge Medications:
DC Medications w/original date entered in [employer]
cetirizine 10 mg tablet 10 mg PO DAILYPRN PRN allergies 01/06/25
guaifenesin 600 mg tablet, extended release 12 hr (Mucinex) 600 mg PO Q12H #60 tabs 01/08/25
levofloxacin 750 mg tablet 750 mg PO DAILY #10 tabs 01/10/25
prednisone 20 mg tablet 40 mg (2 x 20 mg) PO DAILY #8 tabs 01/10/25
Home Medication Changes
Levaquin for a full 10 days
Prednisone 40 mg daily for next 4 days
Pending Results: No
== END 2025-01-10 18:03 | disposition home health service (06) | DRG 193 ==
LOC: 3 WEST ACU 12:03
PROVIDERS: ADMITTING PHYSICIAN Internal Medicine; CONSULT PHYSICIAN Internal Medicine; EMERGENCY PHYSICIAN Emergency Medicine; FAMILY PHYSICIAN Family Medicine
DX: J18.1 Lobar pneumonia, unspecified organism (principal); J96.01 Acute respiratory failure with hypoxia; D71 Functional disorders of polymorphonuclear neutrophils; L27.0 Generalized skin eruption due to drugs and medicaments taken internally; Z88.0 Allergy status to penicillin
CPT/HCPCS: 71046; 80048; 80053; 84145; 85025; 87389; 94640; 94762; 99285

== ENCOUNTER → 2025-01-29 08:38 | Outpatient (REF) | payer OTHER, SELFPAY | LOC: RAD 08:38 | PROVIDERS: ATTENDING PHYSICIAN Internal Medicine | DX: J18.9 Pneumonia, unspecified organism (principal) | CPT/HCPCS: 71046 ==